=== PATIENT | male | born 1990 | race Caucasian/White ===

== ENCOUNTER → 2022-02-07 | Outpatient (CLI) | payer BC, SELFPAY ==
[2022-02-07 15:25] LABS: Absolute Lymphocyte Count 3.08 X10^3/uL (0.83-4.51); Absolute Neutrophil Count 5.3 X10^3/uL (2.0-7.7); Basophil# 0.03 X10^3/uL; Basophil% 0.3 % (0-1); Eosinophil# 0.19 X10^3/uL; Eosinophils% 2.1 % (0-5); Hematocrit 45.6 % (40-54); Lymphocyte # 3.08 X10^3/ul (0.83-4.51); Lymphocyte % 33.4 % (19-41); Mean Corp Hgb Conc 32.9 g/dL (32-36); Mean Corpuscular Hgb 28.7 pg (27.0-32.0); Mean Corpuscular Volume 87.4 fL (80-94); Mean Platelet Vol. 9.8 fl (6.2-12.0); Monocyte# 0.56 X10^3/uL; Monocyte% 6.1 % (0-10); NRBC Flagged by Analyzer 0 % (0-5); Neutrophil # 5.34 X10^3/uL (2.7-7.7); Neutrophil % 57.8 % (47-70); Platelet Count 352 K/mm3 (150-450); RBC Distribution Width CV 12.1 % (11.6-14.6); Red Blood Count 5.22 M/mm3 (4.6-6.2); White Blood Count 9.2 K/mm3 (4.4-11.0)
[2022-02-07 15:42] LABS: ALB/GLOB Ratio 1.1 RATIO (0.9-2.4); AST(SGOT) 29 U/L (15-37); Alanine Aminotransfer ALT/SGPT 61 U/L (16-61); Albumin, Serum 3.9 g/dL (3.2-5.0); Alkaline Phosphatase 91 U/L (45-117); Anion Gap 7 (5-15); BUN 18 mg/dL (7-18); BUN/Creat Ratio 19.3 RATIO (10-20); Calcium,Total 9.4 mg/dL (8.5-10.1); Chloride 105 mmol/L (98-107); Cholesterol 174 mg/dL (200); Creatinine, Serum 0.93 mg/dL (0.70-1.30); EST Glomerular Filtration Rate 100 mL/min (>60); Est Glom Filt Rate - Afr Amer 121 mL/min (>60); Globulin 3.7 g/dL (2.2-4.2); Glucose 137 mg/dL (74-106); High Density Lipoprotein 45 mg/dL; Potassium 4.1 mmol/L (3.5-5.1); Protein, Total 7.6 g/dL (6.4-8.2); Sodium Level 138 mmol/L (136-145); Thyroid Stim Hormone (TSH) 1.82 uIU/mL (0.358-3.74); Triglycerides 244 mg/dL; Very Low Density Lipoprotein 49 mg/dL (5-40)
[2022-02-08 10:33] LABS: Hemoglobin A1c 6.1 % (3.8-5.6)
== END | disposition home or self-care (01) ==
LOC: MFPLAB 11:54
PROVIDERS: PCP Family Medicine; Referring Provider Family Medicine; Visit Provider Family Medicine
DX: E66.9 Obesity, unspecified (principal); R73.02 Impaired glucose tolerance (oral)
CPT/HCPCS: 36415; 80053; 80061; 83036; 84443; 85025

== ENCOUNTER → 2022-08-23 | Outpatient (CLI) | payer BC, SELFPAY ==
[2022-08-23 15:18] LABS: Absolute Lymphocyte Count 4.21 X10^3/uL (0.83-4.51); Basophil# 0.03 X10^3/uL; Basophil% 0.3 % (0-1); Eosinophil# 0.14 X10^3/uL; Eosinophils% 1.4 % (0-5); Hematocrit 46.5 % (40-54); Hemoglobin 15.5 g/dL (13.0-16.5); Lymphocyte # 4.21 X10^3/ul (0.83-4.51); Lymphocyte % 42.1 % (19-41); Mean Corp Hgb Conc 33.3 g/dL (32-36); Mean Corpuscular Volume 87.1 fL (80-94); Mean Platelet Vol. 9.4 fl (6.2-12.0); Monocyte# 0.61 X10^3/uL; Monocyte% 6.1 % (0-10); NRBC Flagged by Analyzer 0 % (0-5); Neutrophil # 4.98 X10^3/uL (2.7-7.7); Neutrophil % 49.8 % (47-70); Platelet Count 354 K/mm3 (150-450); RBC Distribution Width CV 11.9 % (11.6-14.6); RBC Distribution Width SD 37.9 fl (35.1-43.9); Red Blood Count 5.34 M/mm3 (4.6-6.2)
[2022-08-23 15:38] LABS: Hemoglobin A1c 6.2 % (3.8-5.6)
[2022-08-23 15:39] LABS: Vitamin B12 496 pg/mL (211-911); Vitamin D,25 Hydroxy 25.7 ng/mL
[2022-08-23 15:43] LABS: ALB/GLOB Ratio 1.3 RATIO (0.9-2.4); AST(SGOT) 24 U/L (15-37); Alanine Aminotransfer ALT/SGPT 53 U/L (16-61); Albumin, Serum 4.3 g/dL (3.2-5.0); Alkaline Phosphatase 87 U/L (45-117); Anion Gap 5 (5-15); BUN 16 mg/dL (7-18); BUN/Creat Ratio 20.1 RATIO (10-20); Calcium,Total 9.6 mg/dL (8.5-10.1); Chloride 104 mmol/L (98-107); EST Glomerular Filtration Rate 119 mL/min (>60); Est Glom Filt Rate - Afr Amer 145 mL/min (>60); Globulin 3.2 g/dL (2.2-4.2); Glucose 94 mg/dL (74-106); Potassium 4.3 mmol/L (3.5-5.1); Protein, Total 7.5 g/dL (6.4-8.2); Sodium Level 140 mmol/L (136-145); T4 Free Direct 0.85 ng/dL (0.76-1.46); Thyroid Stim Hormone (TSH) 3.16 uIU/mL (0.358-3.74)
== END | disposition home or self-care (01) ==
LOC: MFPLAB 13:46
PROVIDERS: PCP Family Medicine; Referring Provider Family Medicine; Visit Provider Family Medicine
DX: R53.83 Other fatigue (principal); R73.02 Impaired glucose tolerance (oral)
CPT/HCPCS: 36415; 80053; 82306; 82607; 83036; 84439; 84443; 85025

== ENCOUNTER → 2022-12-27 | Outpatient (CLI) | payer BC, SELFPAY ==
[2022-12-27 15:30] LABS: Hemoglobin A1c 6.2 % (3.8-5.6)
[2022-12-27 16:15] LABS: ALB/GLOB Ratio 1.4 RATIO (0.9-2.4); AST(SGOT) 25 U/L (15-37); Alanine Aminotransfer ALT/SGPT 57 U/L (16-61); Albumin, Serum 4.2 g/dL (3.2-5.0); Alkaline Phosphatase 85 U/L (45-117); Anion Gap 5 (5-15); BUN 20 mg/dL (7-18); BUN/Creat Ratio 22.9 RATIO (10-20); Calcium,Total 9.6 mg/dL (8.5-10.1); Chloride 105 mmol/L (98-107); Creatinine, Serum 0.87 mg/dL (0.70-1.30); EST Glomerular Filtration Rate 107 mL/min (>60); Est Glom Filt Rate - Afr Amer 129 mL/min (>60); Globulin 3.1 g/dL (2.2-4.2); Glucose 93 mg/dL (74-106); Potassium 4.2 mmol/L (3.5-5.1); Protein, Total 7.3 g/dL (6.4-8.2); Sodium Level 139 mmol/L (136-145)
== END | disposition home or self-care (01) ==
LOC: MFPLAB 13:45
PROVIDERS: PCP Family Medicine; Referring Provider Family Medicine; Visit Provider Family Medicine
DX: R73.02 Impaired glucose tolerance (oral) (principal)
CPT/HCPCS: 36415; 80053; 83036

== ENCOUNTER → 2023-05-31 | Outpatient (CLI) | payer BC, SELFPAY ==
[2023-05-31 16:00] LABS: ALB/GLOB Ratio 1.1 RATIO (0.9-2.4); AST(SGOT) 25 U/L (15-37); Alanine Aminotransfer ALT/SGPT 55 U/L (16-61); Alkaline Phosphatase 94 U/L (45-117); Anion Gap 4 (5-15); BUN 18 mg/dL (7-18); BUN/Creat Ratio 18.2 RATIO (10-20); Calcium,Total 9.3 mg/dL (8.5-10.1); Chloride 105 mmol/L (98-107); Cholesterol 178 mg/dL (200); Creatinine, Serum 0.99 mg/dL (0.70-1.30); EST Glomerular Filtration Rate 93 mL/min (>60); Est Glom Filt Rate - Afr Amer 112 mL/min (>60); Globulin 3.8 g/dL (2.2-4.2); Glucose 97 mg/dL (74-106); High Density Lipoprotein 47 mg/dL; Protein, Total 7.8 g/dL (6.4-8.2); Sodium Level 137 mmol/L (136-145); Thyroid Stim Hormone (TSH) 1.77 uIU/mL (0.358-3.74); Triglycerides 151 mg/dL; Very Low Density Lipoprotein 30 mg/dL (5-40)
== END | disposition home or self-care (01) ==
LOC: MTLAB 11:29
PROVIDERS: PCP Family Medicine; Referring Provider Family Medicine; Visit Provider Family Medicine
DX: R73.02 Impaired glucose tolerance (oral) (principal); F41.9 Anxiety disorder, unspecified; E66.9 Obesity, unspecified
CPT/HCPCS: 36415; 80053; 80061; 83036; 84443

== ENCOUNTER → 2023-09-17 | Outpatient (CLI) | payer BC, SELFPAY ==
[2023-09-17 15:16] LABS: Absolute Lymphocyte Count 3.54 X10^3/uL (0.83-4.51); Absolute Neutrophil Count 4.6 X10^3/uL (2.0-7.7); Basophil# 0.02 X10^3/uL; Basophil% 0.2 % (0-1); Eosinophil# 0.11 X10^3/uL; Eosinophils% 1.2 % (0-5); Hematocrit 46.2 % (40-54); Hemoglobin 15.2 g/dL (13.0-16.5); Lymphocyte # 3.54 X10^3/ul (0.83-4.51); Mean Corp Hgb Conc 32.9 g/dL (32-36); Mean Corpuscular Hgb 28.6 pg (27.0-32.0); Mean Platelet Vol. 9.4 fl (6.2-12.0); Monocyte# 0.53 X10^3/uL; NRBC Flagged by Analyzer 0 % (0-5); Neutrophil # 4.64 X10^3/uL (2.7-7.7); Neutrophil % 52.4 % (47-70); Platelet Count 375 K/mm3 (150-450); RBC Distribution Width CV 11.9 % (11.6-14.6); RBC Distribution Width SD 37.6 fl (35.1-43.9); Red Blood Count 5.31 M/mm3 (4.6-6.2); White Blood Count 8.9 K/mm3 (4.4-11.0)
[2023-09-17 16:05] LABS: ALB/GLOB Ratio 1.1 RATIO (0.9-2.4); AST(SGOT) 29 U/L (15-37); Alanine Aminotransfer ALT/SGPT 55 U/L (16-61); Albumin, Serum 4.1 g/dL (3.2-5.0); Alkaline Phosphatase 87 U/L (45-117); Anion Gap 9 (5-15); BUN 15 mg/dL (7-18); BUN/Creat Ratio 17.9 RATIO (10-20); Chloride 104 mmol/L (98-107); Cholesterol 183 mg/dL (200); Creatinine, Serum 0.84 mg/dL (0.70-1.30); EST Glomerular Filtration Rate 112 mL/min (>60); Est Glom Filt Rate - Afr Amer 135 mL/min (>60); Globulin 3.6 g/dL (2.2-4.2); Glucose 82 mg/dL (74-106); High Density Lipoprotein 51 mg/dL; Potassium 3.7 mmol/L (3.5-5.1); Protein, Total 7.7 g/dL (6.4-8.2); Sodium Level 140 mmol/L (136-145); Triglycerides 103 mg/dL; Very Low Density Lipoprotein 21 mg/dL (5-40)
== END | disposition home or self-care (01) ==
LOC: MFPLAB 13:42
PROVIDERS: PCP Family Medicine; Visit Provider Family Medicine
DX: R73.02 Impaired glucose tolerance (oral) (principal); E66.9 Obesity, unspecified
CPT/HCPCS: 36415; 80053; 80061; 83036; 85025

== ENCOUNTER → 2024-01-02 | Outpatient (CLI) | payer BC, SELFPAY ==
--- NOTE | 2024-01-02 15:41 | MRI_ITS ---
ACR Level 3 findings have been noted. An addendum which confirms receipt of the report will follow. INDICATION: distal biceps tear confirmation EXAMINATION: MRI - RIGHT MR Elbow W/O Contrast TECHNIQUE: Multiplanar and multisequence MR images of the right elbow without contrast. IV Contrast Dosage and Agent: None. COMPARISON: Elbow joint radiograph December 31, 2023. FINDINGS: BONE: No fracture or abnormal bone marrow signal. JOINT: Articular cartilage intact.] [No joint effusion. SOFT TISSUES: Diffuse subcutaneous soft tissue edema along the ulnar aspect of the elbow. No organized fluid collection or large hematoma. The ulnar nerve is normal in the cubital tunnel. MUSCLES: Biceps muscle appears thickened and retracted with mild edema at the myotendinous junction.. TENDONS: The biceps tendon is ruptured at its radial attachment, retracted 4cm, bunching just deep to the subcutaneous fat at the level of the elbow joint elbow joint level elbow joint level of the joint level. The medial common flexor tendon is intact with mild edema at the epicondylar insertion. The lateral common extensor tendons demonstrate normal signal characteristics. The triceps tendon is intact. LIGAMENTS: The medial and lateral ligaments are intact. MRI/Upper Ext Joint Only(Routine) IMPRESSION: Complete rupture of the distal biceps tendon insertion at the radial insertion with retraction approximately 4 cm. SILVINO Orthopedic consultation recommended. Mild edema at the common flexor tendon insertion compatible with strain. Electronically Signed: Rico العلي MD at 17:23 EDT ,
== END | disposition home or self-care (01) ==
LOC: MRI 15:33
PROVIDERS: PCP Family Medicine; Visit Provider Orthopaedic Surgery Sports Medicine
DX: M25.521 Pain in right elbow (principal)
CPT/HCPCS: 73221

== ENCOUNTER 2024-01-08 09:41 | Day surgery (SDC) | payer BC, SELFPAY ==
[2024-01-08] VITALS (8 sets, daily range): BP systolic 96–137; BP diastolic 57–79; PULSE 74–93; RESP 16–18; TEMP 36.2–36.6; O2SAT 88–97; BMI 37.9
[2024-01-08] MEDS: Lactated Ringers 1,000 ML 15 ML IV (10:37)
--- NOTE | 2024-01-08 11:55 | HP.PCM_ITS ---
HPI - General HPI Narrative TAI HEIN, is a 33 M who presents for right distal biceps repair. no changes to h and p. had another fall with some bruising. right elbow makred. ok to proceed. rab, post op instructions and narcotic counselling. MR#: [id number] Acct: [id number] Name: TAI HEIN Rep #: [id number] : 1990 Provider: Dr. Dexter Spicer MD Age/Sex: 33/M Location: [facility] [place] Status: Signed Intake Vital Signs 12/31/2407:48 Height 5 ft 11 in Weight: 274 lb 4 oz BMI 38.2 Intake Visit Reasons: RIGHT ARM Chief Complaint: MRI Review Is patient in pain?: Yes (Right arm) Pain scale (1-10): 6 Allergies animal dander Allergy (Verified 01/03/24 13:32) Othergrass pollen Allergy (Verified 01/03/24 13:32) Other Medications sertraline 50 mg tablet (Zoloft) 50 mg PO DAILY 12/31/23 [History Confirmed 01/03/24] PFSH Medical History Right elbow pain Rupture of right distal biceps tendon Surgical History H/O arthroscopic knee surgery H/O eye surgery History of nasal surgery Family History Father DiabetesGrandfather Cancer Prostate Grandmother CVA (cerebral vascular accident)Other Crohn's disease Social History household members: spouse and children Smoking Status: Never smoker alcohol intake: current alcohol intake frequency: holidays/special occasions only HPI RIGHT ARM Details: This documentation accurately reflects the service provided and the decisions made by me, Dr. Dexter Spicer MD 01/03/24 1322. Part of today?s visit was documented by [ ], acting as scribe. TAI HEIN is a 33 year old M here today for FU R elbow MRI to assess for distal bicep tear. Ortho Exam General General: Yes no acute distress Neurologic: Yes alert and Yes oriented x3 Psychologic: Yes reasonable and appropriate Supplemental Info [facility] Imaging Services [address] [place] [address] Upper Ext Joint Only(Routine) MR#: [id number] Acct: [id number] Name: TAI HEIN Rep #: [id number] : 1990 M 33 From: Tai العلي MD PCP: Dr. Charly Candelaria MD Status: REG CLI Study: Upper Ext Joint Only(Routine) Date of Exam: 01/02/24 Exam# [id number] Ordering Dr: Dexter Spicer MD ADDENDUM by Dr. Tai اعللي MD on 01/02/24 at 1723 INDICATION: distal biceps tear confirmation EXAMINATION: MRI - RIGHT MR Elbow W/O Contrast TECHNIQUE: Multiplanar and multisequence MR images of the right elbow without contrast. IV Contrast Dosage and Agent: None. COMPARISON: Elbow joint radiograph December 31, 2023. FINDINGS: BONE: No fracture or abnormal bone marrow signal. JOINT: Articular cartilage intact.] [No joint effusion. SOFT TISSUES: Diffuse subcutaneous soft tissue edema along the ulnar aspect of the elbow. No organized fluid collection or large hematoma. The ulnar nerve is normal in the cubital tunnel. MUSCLES: Biceps muscle appears thickened and retracted with mild edema at the myotendinous junction.. TENDONS: The biceps tendon is ruptured at its radial attachment, retracted 4cm, bunching just deep to the subcutaneous fat at the level of the elbow joint elbow joint level elbow joint level of the joint level. The medial common flexor tendon is intact with mild edema at the epicondylar insertion. The lateral common extensor tendons demonstrate normal signal characteristics. The triceps tendon is intact. LIGAMENTS: The medial and lateral ligaments are intact. 01/02/243 Date cc: Dr. Charly Candelaria MD; Dr. Dexter Spicer MD ~* Signed ADDENDUM by Dr. Tai العلي MD on 01/02/24 at 1723 MRI/Upper Ext Joint Only(Routine) IMPRESSION: Complete rupture of the distal biceps tendon insertion at the radial insertion with retraction approximately 4 cm. SILVINO Orthopedic consultation recommended. Mild edema at the common flexor tendon insertion compatible with strain. N.B. : NELIDA Stallings, confirmed on 01/03/2024 10:13:33 (ET) that the healthcare facility has received the radiology report. Electronically Signed: Tai العلي MD at 17:23 EDT , 01/03/24 1020 Date cc: Dr. Charly Candelaria MD; Dr. Dexter Spicer MD ~* Signed ACR Level 3 findings have been noted. An addendum which confirms receipt of the report will follow. INDICATION: distal biceps tear confirmation EXAMINATION: MRI - RIGHT MR Elbow W/O Contrast TECHNIQUE: Multiplanar and multisequence MR images of the right elbow without contrast. IV Contrast Dosage and Agent: None. COMPARISON: Elbow joint radiograph December 31, 2023. FINDINGS: BONE: No fracture or abnormal bone marrow signal. JOINT: Articular cartilage intact.] [No joint effusion. SOFT TISSUES: Diffuse subcutaneous soft tissue edema along the ulnar aspect of the elbow. No organized fluid collection or large hematoma. The ulnar nerve is normal in the cubital tunnel. MUSCLES: Biceps muscle appears thickened and retracted with mild edema at the myotendinous junction.. TENDONS: The biceps tendon is ruptured at its radial attachment, retracted 4cm, bunching just deep to the subcutaneous fat at the level of the elbow joint elbow joint level elbow joint level of the joint level. The medial common flexor tendon is intact with mild edema at the epicondylar insertion. The lateral common extensor tendons demonstrate normal signal characteristics. The triceps tendon is intact. LIGAMENTS: The medial and lateral ligaments are intact. MRI/Upper Ext Joint Only(Routine) IMPRESSION: Complete rupture of the distal biceps tendon insertion at the radial insertion with retraction approximately 4 cm. SILVINO Orthopedic consultation recommended. Mild edema at the common flexor tendon insertion compatible with strain. Electronically Signed: Tai العلي MD at 17:23 EDT Reading Location ID and State: [facility] / [place] Tel , Service support , Coding Level of Care Code Off vis,est,level 3 Diagnoses Rupture of right distal biceps tendon S46.211A Assessment and Plan Assessment and Plan (1) Rupture of right distal biceps tendon: Status: Acute Plan: 33 yr M with R distal biceps tear. I explained to the patient the diagnosis prognosis different treatment options. With nonoperative treatment typically results in loss of 20% supination strength and 10 to 15% flexion strength and easy fatigability of the arm. This is a active man with distal biceps injury typically it is recommended for surgery in this patient population. Surgery would be in the form of single incision repair of the right distal biceps. Patient wants to go ahead with surgery I explained the risks including 3-7% risk of PIN nerve injury, which one third may be permanent. There is also risk of rerupture infection and other problems with surgery generally recovery is up 4 to 6 months before return to near full strength he understands wants to go ahead and signed the consent form for surgery. Will add on for this coming Saturday. Pros and cons risks and benefits were discussed with the patient including but not limited to infection, pain, stiffness, bleeding, damage to surrounding structures, neurovascular injury, recurrence or retear, failure or wear of hardware or fixation, instability, fracture, deep vein thrombosis and pulmonary embolism, anesthetic risks, , patient dissatisfaction, need for further surgery and other risks. Patient understood and wished to proceed with surgery, and signed the informed consent documentation. [facility] Medical History (Updated 01/07/24 @ 10:06 by Mile Parra) Anxiety Non-smoker Right elbow pain Rupture of right distal biceps tendon Wears glasses Home Medications sertraline 50 mg tablet (Zoloft) 50 mg PO DAILY 12/31/23 [History Last Taken Unknown] Allergy/AdvReac Type Severity Reaction Status Date / Time animal dander Allergy Other Verified 01/08/24 10:18 grass pollen Allergy Other Verified 01/08/24 10:18 Family History Father Diabetes Grandfather Cancer Prostate Grandmother CVA (cerebral vascular accident) Other Crohn's disease Surgical History (Updated 01/07/24 @ 10:06 by Mile Parra) H/O arthroscopic knee surgery H/O eye surgery History of nasal surgery History of wisdom tooth extraction Social History household members: spouse and children Smoking Status: Never smoker alcohol intake: current alcohol intake frequency: holidays/special occasions only Vital Signs Vital Signs Vital Signs: 01/08/24 10:32 01/08/24 10:32 Temperature 97.8 F Temperature Source Temporal Pulse Rate 74 Respiratory Rate 16 Respiratory Pattern Normal Blood Pressure 137/79 H Blood Pressure Mean 98 Blood Pressure Source Monitor Blood Pressure Position Semi-Fowlers Blood Pressure Location Left Arm Pulse Ox 97 Oxygen Delivery Method Room Air Weight Weight: 272 lb 0.807 oz Body Mass Index (BMI) 37.9
[2024-01-08] MEDS: Cefazolin 3 GM in 0.9% Normal Saline (100mL Bag) 100 ML IV (12:13)
--- NOTE | 2024-01-08 12:54 | RAD_ITS ---
EXAM: XR RIGHT ELBOW, 2 VIEWS CLINICAL INDICATION: RT DISTAL BICEPS REPAIR TECHNIQUE: Frontal and lateral views of the right elbow. COMPARISON: December 31, 2023. FINDINGS: Intraoperative image submitted, single frontal view. This image was performed for localization. Alignment is unchanged from the December 31, 2023 exam. RAD/Elbow 2 Views IMPRESSION: 1. Intraoperative image submitted, single frontal view. This image was performed for localization. 2. Alignment is unchanged from the December 31, 2023 exam. Electronically Signed: Omar Burris MD at 17:43 EDT ,
--- NOTE | 2024-01-08 13:32 | PCM.OPRPT ---
Problems Associated Problem List Diagnoses (1) Rupture of right distal biceps tendon: Report of Operation Date of Procedure: 01/08/24 Pre-Operative Diagnosis: R distal biceps tear Post-Operative Diagnosis: same Surgery/Procedure Performed:: right distal biceps repair Surgeon: Dexter Spicer Type of Anesthesia: Block,Regional and General Anesthesiologist: Dorian Harris Estimated Blood Loss (mL): 20 Description of Procedure: Patient brought to the operating room theater. Placed supine on the table. 2 g IV Ancef administered prior to start of procedure. All bony prominences padded. SCDs on the legs. General anesthesia induced. Arm table to the patient's right side. Tourniquet applied to the upper extremity properly padded. Bed turned 90 degrees. Right upper extremity prepped and draped in the usual sterile fashion allowing over 3 minutes drying time prior to draping. Preoperative timeout performed confirm the site patient and surgery. Began by elevating the limb inflated the tourniquet to 250 mmhg. Made a standard transverse incision 2 fingerbreadths below the level of the elbow crease. This was in the mid aspect of the proximal volar forearm. Carried the dissection down through skin and subcutaneous tissue to meticulous hemostasis. Protected superficial cutaneous nerves and vessels. Identified the distal biceps tendon. Deliver this through the incision. I removed the bulbous distal end of the distal biceps down to healthy tissue tubularized this. Use the Arthrex distal button kit with a Lane needle to perform a running locking suture and locked the suture distally cut at the splice. Transfer the suture ends in opposite directions through the button. Next I turned my attention distally. Identified the tuberosity. I used intra op radiographs to do this. I cleared away any superficial soft tissue from the tuberosity fully supinate the arm. Passed spade tip guidewire bicortically at this area. Then I sized the tendon to be a size 8 I reamed over the proximal cortex with a size 8 reamer irrigated and removed the bony debris. I then passed the button to the far cortex and flipped the button, delivered the tendon into the bone tunnel by pulling on free ends of sutures, tension slide technique. Mobilized early adhesions prior to doing the repair. I then passed 1 suture limb back through the tendon and locked this using 5 interrupted half hitches with the sutures cut short. Passed the 7mm interference screw into the tunnel as well for backup fixation, tied over this as well. Tourniquet let down thorough hemostasis thorough irrigation performed meticulous hemostasis. Elbow flexed 90 degrees wound closed with 3-0 Vicryl sutures and 3-0 Monocryl. Skin cleaned with wet dry dressing. Skin cleaned with wet dry dressing followed application of Steri-Strips Adaptic 4 x 4 gauze ABD Zaki wrap as well as a posterior prefabricated fiberglass splint with the elbow at 90 degrees and a well-padded sling for the upper extremity. Patient woken up from general anesthetic transferred off the operating table taken postanesthetic care unit in stable addition. All sponge needle return counts were correct no complications. cpt 74850 Complications none Admit VTE Documentation VTE Present on Admission: No VTE Mechan Device Prophylaxis: SCD's VTE Pharm Prophylaxis ordered?: No Reason prophylaxis not ordered:: Treatment Not Indicated Procedures Musculoskeletal 20xxx-29xxx: Other Procedure See Report
--- NOTE | 2024-01-08 13:36 | DCINST_ITS ---
Discharge Instructions Diet Discharge Diet: No restrictions Activity Lifting Restrictions: no lifting Keep extremity elevated above heart level: Operative Extremity Dressing / Incision Call your doctor if your incision/area has: Continuous Slow Oozing, Sudden Increased Bleeding, Increased Pain/ Swelling, Increased Redness, Foul Smelling Discharge and Swelling at the incision site Change Dressing in: leave in place till F/U Cleanse incision/area with: Do not get Incision Wet Follow Up Care Please Follow Up With: Dexter Spicer MD When: 2 days Test Results: Test results from this visit will be discussed in further detail at your follow- up appointment, if applicable. Discharge Plan Admission Attending Provider: Dexter Spicer Primary Care Provider: Charly Candelaria Discharge Orders/Prescriptions Prescriptions: New oxycodone-acetaminophen [Endocet] 5-325 mg tablet 1 tab PO Q4H MDD 6 PRN (Reason: pain) 5 Days Qty: 20 0RF No Action sertraline [Zoloft] 50 mg tablet 50 mg PO DAILY Referrals / Follow Up: Charly Candelaria MD [Primary Care Provider] - Disposition Disposition (needs filled in before D/C Order can be placed): Home, Self Care
== END 2024-01-08 14:41 | disposition home or self-care (01) ==
LOC: SDC 09:42 → AC 09:47
PROVIDERS: PCP Family Medicine; Referring Provider Orthopaedic Surgery Sports Medicine; Visit Provider Orthopaedic Surgery Sports Medicine
PROC: (CPT 24341; principal; 2024-01-08 11:30)
DX: S46.211A Strain of muscle, fascia and tendon of other parts of biceps, right arm, initial encounter (principal); W19.XXXA Unspecified fall, initial encounter
CPT/HCPCS: 24341; 01710; 64415; 73070; 76000; J7120; J2405

== ENCOUNTER → 2024-01-22 | Outpatient (CLI) | payer BC, SELFPAY ==
[2024-01-22 12:32] LABS: Absolute Lymphocyte Count 3.71 X10^3/uL (0.83-4.51); Absolute Neutrophil Count 6.2 X10^3/uL (2.0-7.7); Basophil# 0.04 X10^3/uL; Basophil% 0.4 % (0-1); Eosinophil# 0.19 X10^3/uL; Eosinophils% 1.8 % (0-5); Hematocrit 45.5 % (40-54); Hemoglobin 15.3 g/dL (13.0-16.5); Lymphocyte # 3.71 X10^3/ul (0.83-4.51); Lymphocyte % 34.6 % (19-41); Mean Corp Hgb Conc 33.6 g/dL (32-36); Mean Corpuscular Hgb 29.2 pg (27.0-32.0); Mean Corpuscular Volume 86.8 fL (80-94); Mean Platelet Vol. 9.5 fl (6.2-12.0); Monocyte# 0.56 X10^3/uL; Monocyte% 5.2 % (0-10); NRBC Flagged by Analyzer 0 % (0-5); Neutrophil % 57.7 % (47-70); Platelet Count 394 K/mm3 (150-450); RBC Distribution Width CV 11.7 % (11.6-14.6); RBC Distribution Width SD 37.2 fl (35.1-43.9); Red Blood Count 5.24 M/mm3 (4.6-6.2); White Blood Count 10.7 K/mm3 (4.4-11.0)
[2024-01-22 13:12] LABS: ALB/GLOB Ratio 1.1 RATIO (0.9-2.4); AST(SGOT) 23 U/L (15-37); Alanine Aminotransfer ALT/SGPT 45 U/L (16-61); Alkaline Phosphatase 91 U/L (45-117); Anion Gap 6 (5-15); BUN 21 mg/dL (7-18); Calcium,Total 9.4 mg/dL (8.5-10.1); Chloride 107 mmol/L (98-107); Cholesterol 180 mg/dL (200); Creatinine, Serum 0.75 mg/dL (0.70-1.30); EST Glomerular Filtration Rate 127 mL/min (>60); Est Glom Filt Rate - Afr Amer 153 mL/min (>60); Globulin 3.8 g/dL (2.2-4.2); Glucose 111 mg/dL (74-106); High Density Lipoprotein 49 mg/dL; Protein, Total 7.8 g/dL (6.4-8.2); Sodium Level 138 mmol/L (136-145); Triglycerides 180 mg/dL; Very Low Density Lipoprotein 36 mg/dL (5-40)
== END | disposition home or self-care (01) ==
LOC: MFPLAB 10:57
PROVIDERS: PCP Family Medicine; Visit Provider Family Medicine
DX: E66.9 Obesity, unspecified (principal); R73.02 Impaired glucose tolerance (oral)
CPT/HCPCS: 36415; 80053; 80061; 83036; 85025

== ENCOUNTER 2024-04-14 09:30 | Outpatient (RCR) | payer BC, SELFPAY ==
--- NOTE | 2024-01-22 09:25 | HP.PTEVAL ---
Patient's Visit Information Visit Information Visit Information: TAI HEIN is a 33 year old M referred to Physical Therapy by Dr. Dexter Spicer MD with a diagnosis of Rupture of R bicep. Date of Evaluation: 01/22/24 Physical Therapist: KARSTEN Graves Visit Plan Frequency: 1-2x /Week Duration: 3 Months Plan: 1-2X/ week for PROM of R elbow following protocol (in folder) PROM per the below restrictions and per protocol in the folder Surgery was 01/09/24 week 3 (01/29) post op brace should be around 45 degrees extension restriction to full flexion Week 4 (02/05) post op brace should be around 30 degrees extension restriction to full flexion Week 5 (02/12) post op brace should be around 20 degrees extension restriction to full flexion week 6 (02/19) post op brace open Subjective Subjective: 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 He got an appt with a PCP and he sent him to Dr Spicer the next day and then in surgery 10 days after the injury. He had an MRI. He has no pain per se today but just some tingling into the hand and the forearm. He is R handed. He is sleeping good. He is in a T ROM brace locked at 90 degrees and sleeps with it on. 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 Pain R bicep pain: Pain Intensity (Out of 10): 0 Objective Objective: R handed PROM R elbow 90 degrees extension to approx 110 degrees flexion (per restrictions) Good wrist flexion and extension AROM Pt has limited Pronation and supination as exepected PROM Pt is wearing his brace stopped at 90 degrees extension Discussed posture and scapular retraction exercises Balance/Special Test Scores Quick DASH Score: 72.7250 Goals Goal 1:: I HEP Goal Time Frame: 8-12 Weeks Goal 2:: Increase R elbow flexion and extension to full AROM by discharge Goal Time Frame: 8-12 Weeks Goal 3:: Be able to use his R arm for work and ADL's Goal Time Frame: 8-12 Weeks Rehabilitation Potential Rehabilitation Potential: Good Anticipated Interventions Patient/Client Instruction: Educate patient on: Condition and Plan of Care For the Purpose of:: To decrease pain, To decrease swelling/inflammation, To increase ROM, To improve nutrient delivery to tissue, To improve muscle performance and motor function, To improve ability to perform ADL's, To increase tolerance to activity/condition/position, To improve performance and independence with ADL's, To decrease level of supervision to perform tasks, To improve ability of physical actions for home/community/work/leisure, To improve health of tissue, To decrease soft tissue restriction and To increase flexibility/ROM Therapeutic Exercise to Include: Strength training, Postural training, Flexibilty training, Neuromotor development, Passive ROM, Active ROM and Scapular Strength/Stabilization For the Purpose of:: To decrease pain, To decrease swelling/inflammation, To increase ROM, To improve nutrient delivery to tissue, To improve muscle performance and motor function, To improve ability to perform ADL's, To increase tolerance to activity/condition/position, To improve ability of physical actions for home/community/work/leisure, To improve gait and locomotor functions, To decrease soft tissue restriction and To increase flexibility/ROM Manual Therapy Techniques to Include: Passive ROM For the Purpose of:: To decrease pain, To decrease swelling/inflammation, To increase ROM, To improve nutrient delivery to tissue and To increase flexibility/ROM Text: Thank you for the opportunity to evaluate your patient. For Medicare and Medicare HMO plans, please review the plan of care and approve it. It will need to be FAXED BACK to us at [phone] for Medicare purposes. For Medicare only, by signing this I certify the plan of care. Please let me know if there are questions or concerns regarding this plan of care. Physician Signature: Date:
--- NOTE | 2024-03-17 12:54 | HP.PTREVAL_ITS ---
Re-Evaluation Intro: Dr. Dexter Spicer MD, It has been my pleasure to treat TAI HEIN over the last 14 visits for Rupture of R bicep. Please see the progress note below for an update on the physical therapy plan of care! Subjective Subjective: He is not wearing his brace anymore. He is having no pain. He is not lifting much. His R arm feels pretty weak Objective Objective/Function: Issued 2 stretches for pt to reach terminal extension of the R elbow and supination Plan Plan Plan: 2X/ week for PROM of R elbow following protocol (in folder) PROM per the below restrictions and per protocol in the folder Surgery was 01/09/24 Balance/Gait/Functional tests Balance/Special Test Scores Quick DASH Score: 18.1800 Goals Goals Goal 1:: I HEP Goal Time Frame: 8-12 Weeks Goal 2:: Increase R elbow flexion and extension to full AROM by discharge Goal Time Frame: 8-12 Weeks Goal 3:: Be able to use his R arm for work and ADL's Goal Time Frame: 8-12 Weeks Anticipated Interventions Anticipated Interventions Patient/Client Instruction: Educate patient on: Condition and Plan of Care For the Purpose of:: To decrease pain, To decrease swelling/inflammation, To inc rease ROM, To improve nutrient delivery to tissue, To improve muscle performance and motor function, To improve ability to perform ADL's, To increase tolerance to activity/condition/position, To improve performance and independence with ADL's, To decrease level of supervision to perform tasks, To improve ability of physical actions for home/community/work/leisure, To improve health of tissue, To decrease soft tissue restriction and To increase flexibility/ROM Therapeutic Exercise to Include: Strength training, Postural training, Flexibilty training, Neuromotor development, Passive ROM, Active ROM and Scapular Strength/Stabilization For the Purpose of:: To decrease pain, To decrease swelling/inflammation, To increase ROM, To improve nutrient delivery to tissue, To improve muscle performance and motor function, To improve ability to perform ADL's, To increase tolerance to activity/condition/position, To improve ability of physical actions for home/community/work/leisure, To improve gait and locomotor functions, To decrease soft tissue restriction and To increase flexibility/ROM Manual Therapy Techniques to Include: Passive ROM For the Purpose of:: To decrease pain, To decrease swelling/inflammation, To increase ROM, To improve nutrient delivery to tissue and To increase flexibility/ROM Re-Evaluation Ending Re-evaluation ending: Please do not hesitate to contact me at [phone] by phone or if you have questions or concerns regarding this new plan of care! Sincerely, Katlin Sanon, MPT
--- NOTE | 2024-04-14 10:36 | HP.PTREVAL ---
Re-Evaluation Intro: Dr. Dexter Spicer MD, It has been my pleasure to treat TAI HEIN over the last 22 visits for Rupture of R bicep. Please see the progress note below for an update on the physical therapy plan of care! Subjective Subjective: Pt sees the Dr in 2.5 weeks. He is back to doing most things. He still struggles with picking up heavy things at home (30-40#). He feels that he can slowly build that up at home Objective Objective/Function: R 8.7 and L 13.8 bicep strength Pt has some pain with resisted supination. instructed him to stretch his wrist extensors and just do ROM into supination over the next 2 weeks. Plan Plan Plan: Hold chart until after appt but probable DC after appt. Balance/Gait/Functional tests Balance/Special Test Scores Quick DASH Score: 11.3625 Goals Goals Goal 1:: I HEP Goal Time Frame: 8-12 Weeks Goal Progress: Goal Met Goal 2:: Increase R elbow flexion and extension to full AROM by discharge Goal Time Frame: 8-12 Weeks Goal Progress: Goal Met Goal 3:: Be able to use his R arm for work and ADL's Goal Time Frame: 8-12 Weeks Goal Progress: Progressing Anticipated Interventions Anticipated Interventions Patient/Client Instruction: Educate patient on: Condition and Plan of Care For the Purpose of:: To decrease pain, To decrease swelling/inflammation, To increase ROM, To improve nutrient delivery to tissue, To improve muscle performance and motor function, To improve ability to perform ADL's, To increase tolerance to activity/condition/position, To improve performance and independence with ADL's, To decrease level of supervision to perform tasks, To improve ability of physical actions for home/community/work/leisure, To improve health of tissue, To decrease soft tissue restriction and To increase flexibility/ROM Therapeutic Exercise to Include: Strength training, Postural training, Flexibilty training, Neuromotor development, Passive ROM, Active ROM and Scapular Strength/Stabilization For the Purpose of:: To decrease pain, To decrease swelling/inflammation, To increase ROM, To improve nutrient delivery to tissue, To improve muscle performance and motor function, To improve ability to perform ADL's, To increase tolerance to activity/condition/position, To improve ability of physical actions for home/community/work/leisure, To improve gait and locomotor functions, To decrease soft tissue restriction and To increase flexibility/ROM Manual Therapy Techniques to Include: Passive ROM For the Purpose of:: To decrease pain, To decrease swelling/inflammation, To increase ROM, To improve nutrient delivery to tissue and To increase flexibility/ROM Re-Evaluation Ending Re-evaluation ending: Please do not hesitate to contact me at [phone] by phone or if you have questions or concerns regarding this new plan of care! Sincerely, Katlin Sanon, MPT
--- NOTE | 2024-06-16 08:03 | HP.PT.NRP ---
Patient Information Patient Information: TAI HEIN was seen in my office for initial evaluation on 01/22/24. The following Plan of Care was established for this patient: POC Established Initial Frequency: 1-2x /Week Initial Duration: 3 Months Anticipated Interventions Patient/Client Instruction: Educate patient on: Condition and Plan of Care For the Purpose of:: To decrease pain, To decrease swelling/inflammation, To increase ROM, To improve nutrient delivery to tissue, To improve muscle performance and motor function, To improve ability to perform ADL's, To increase tolerance to activity/condition/position, To improve performance and independence with ADL's, To decrease level of supervision to perform tasks, To improve ability of physical actions for home/community/work/leisure, To improve health of tissue, To decrease soft tissue restriction and To increase flexibility/ROM Therapeutic Exercise to Include: Strength training, Postural training, Flexibilty training, Neuromotor development, Passive ROM, Active ROM and Scapular Strength/Stabilization For the Purpose of:: To decrease pain, To decrease swelling/inflammation, To increase ROM, To improve nutrient delivery to tissue, To improve muscle performance and motor function, To improve ability to perform ADL's, To increase tolerance to activity/condition/position, To improve ability of physical actions for home/community/work/leisure, To improve gait and locomotor functions, To decrease soft tissue restriction and To increase flexibility/ROM Manual Therapy Techniques to Include: Passive ROM For the Purpose of:: To decrease pain, To decrease swelling/inflammation, To increase ROM, To improve nutrient delivery to tissue and To increase flexibility/ROM Last Seen Last Seen: This patient was last seen in our office 04/14/24. Pertinent comments regarding their Physical therapy will appear below: [facility] At this point I will be discontinuing this patient from physical therapy. I would be happy to see this patient again in the future if found appropriate by the physician. Thank you! Katlin Sanon, KARSTEN Balance/Gait/Functional tests Balance/Special Test Scores Quick DASH Score: 11.5543
== END 2024-04-14 19:00 | disposition home or self-care (01) ==
LOC: PT 09:30
PROVIDERS: PCP Family Medicine; Referring Provider Orthopaedic Surgery Sports Medicine; Visit Provider Orthopaedic Surgery Sports Medicine
DX: S46.211D Strain of muscle, fascia and tendon of other parts of biceps, right arm, subsequent encounter (principal)
CPT/HCPCS: 97110; 97140; 97161; 97530

== ENCOUNTER → 2024-05-27 | Outpatient (CLI) | payer BC, SELFPAY ==
[2024-05-27 12:25] LABS: Absolute Lymphocyte Count 3.49 X10^3/uL (0.83-4.51); Absolute Neutrophil Count 4.2 X10^3/uL (2.0-7.7); Basophil# 0.03 X10^3/uL; Basophil% 0.4 % (0-1); Eosinophil# 0.16 X10^3/uL; Eosinophils% 1.9 % (0-5); Hematocrit 45.3 % (40-54); Hemoglobin 15.1 g/dL (13.0-16.5); Lymphocyte # 3.49 X10^3/ul (0.83-4.51); Mean Corp Hgb Conc 33.3 g/dL (32-36); Mean Corpuscular Hgb 28.7 pg (27.0-32.0); Mean Platelet Vol. 9.6 fl (6.2-12.0); Monocyte% 7.1 % (0-10); NRBC Flagged by Analyzer 0 % (0-5); Neutrophil # 4.22 X10^3/uL (2.7-7.7); Neutrophil % 49.5 % (47-70); Platelet Count 349 K/mm3 (150-450); RBC Distribution Width CV 11.8 % (11.6-14.6); RBC Distribution Width SD 36.8 fl (35.1-43.9); Red Blood Count 5.27 M/mm3 (4.6-6.2); White Blood Count 8.5 K/mm3 (4.4-11.0)
[2024-05-27 13:01] LABS: ALB/GLOB Ratio 1.1 RATIO (0.9-2.4); AST(SGOT) 27 U/L (15-37); Alanine Aminotransfer ALT/SGPT 56 U/L (16-61); Alkaline Phosphatase 98 U/L (45-117); Anion Gap 6 (5-15); BUN 16 mg/dL (7-18); Calcium,Total 9.7 mg/dL (8.5-10.1); Chloride 105 mmol/L (98-107); Cholesterol 179 mg/dL (200); Creatinine, Serum 0.89 mg/dL (0.70-1.30); EST Glomerular Filtration Rate 104 mL/min (>60); Est Glom Filt Rate - Afr Amer 125 mL/min (>60); Globulin 3.8 g/dL (2.2-4.2); Glucose 101 mg/dL (74-106); High Density Lipoprotein 48 mg/dL; Potassium 3.7 mmol/L (3.5-5.1); Protein, Total 7.8 g/dL (6.4-8.2); Sodium Level 138 mmol/L (136-145); Triglycerides 158 mg/dL; Very Low Density Lipoprotein 32 mg/dL (5-40)
[2024-05-27 14:25] LABS: Hemoglobin A1c 6.1 % (3.8-5.6)
== END | disposition home or self-care (01) ==
LOC: MFPLAB 10:43
PROVIDERS: PCP Family Medicine; Visit Provider Family Medicine
DX: E66.9 Obesity, unspecified (principal); R73.02 Impaired glucose tolerance (oral)
CPT/HCPCS: 36415; 80053; 80061; 83036; 85025

== ENCOUNTER → 2024-10-27 | Outpatient (CLI) | payer BC, SELFPAY ==
[2024-10-27 12:34] LABS: Absolute Lymphocyte Count 2.77 X10^3/uL (0.83-4.51); Absolute Neutrophil Count 10.4 X10^3/uL (2.0-7.7); Basophil# 0.05 X10^3/uL; Basophil% 0.3 % (0-1); Eosinophil# 0.05 X10^3/uL; Eosinophils% 0.3 % (0-5); Hematocrit 46.1 % (40-54); Hemoglobin 15.5 g/dL (13.0-16.5); Lymphocyte # 2.77 X10^3/ul (0.83-4.51); Lymphocyte % 19.2 % (19-41); Mean Corp Hgb Conc 33.6 g/dL (32-36); Mean Corpuscular Hgb 28.9 pg (27.0-32.0); Monocyte# 1.07 X10^3/uL; Monocyte% 7.4 % (0-10); NRBC Flagged by Analyzer 0 % (0-5); Neutrophil # 10.43 X10^3/uL (2.7-7.7); Neutrophil % 72.2 % (47-70); Platelet Count 348 K/mm3 (150-450); RBC Distribution Width SD 37.6 fl (35.1-43.9); Red Blood Count 5.36 M/mm3 (4.6-6.2); White Blood Count 14.5 K/mm3 (4.4-11.0)
[2024-10-27 12:44] LABS: ALB/GLOB Ratio 0.9 RATIO (0.9-2.4); AST(SGOT) 28 U/L (15-37); Alanine Aminotransfer ALT/SGPT 41 U/L (16-61); Albumin, Serum 3.8 g/dL (3.2-5.0); Alkaline Phosphatase 96 U/L (45-117); Anion Gap 6 (5-15); BUN 17 mg/dL (7-18); BUN/Creat Ratio 18.5 RATIO (10-20); Calcium,Total 9.5 mg/dL (8.5-10.1); Chloride 102 mmol/L (98-107); Cholesterol 162 mg/dL (200); Creatinine, Serum 0.92 mg/dL (0.70-1.30); EST Glomerular Filtration Rate 100 mL/min (>60); Est Glom Filt Rate - Afr Amer 121 mL/min (>60); Globulin 4.1 g/dL (2.2-4.2); Glucose 132 mg/dL (74-106); High Density Lipoprotein 50 mg/dL; Potassium 3.8 mmol/L (3.5-5.1); Protein, Total 7.9 g/dL (6.4-8.2); Sodium Level 137 mmol/L (136-145); Triglycerides 103 mg/dL; Very Low Density Lipoprotein 21 mg/dL (5-40)
[2024-10-27 15:03] LABS: Hemoglobin A1c 6.2 % (3.8-5.6)
== END | disposition home or self-care (01) ==
LOC: MFPLAB 10:46
PROVIDERS: PCP Family Medicine; Referring Provider Family Medicine; Visit Provider Family Medicine
DX: E66.9 Obesity, unspecified (principal); R73.02 Impaired glucose tolerance (oral)
CPT/HCPCS: 36415; 80053; 80061; 83036; 85025